=== PATIENT | female | born 1960 | race Caucasian/White ===

== ENCOUNTER 2017-04-07 17:45 | Emergency (ER) | payer BC, OTHER ==
[2017-04-07] MEDS ORDERED: SODIUM CHLORIDE 0.9% 500 ML IV STA (18:09)
--- NOTE | 2017-04-07 18:14 | ED ---
General Adult HPI - General Chief complaint: Chest Pain Stated complaint: CHEST PAIN Time Seen by Provider: 04/07/17 17:50 Source: patient, RN notes reviewed Mode of arrival: wheelchair Limitations: no limitations - History of Present Illness Initial comments: This is a 56-year-old female presents emergency Department complaining of sharp chest pain last 2-3 seconds in his been ongoing intermittently approximate once a day for a month. Patient also states after she gets the sharp chest pains she feels very tired. Patient states it does hurt to touch her chest as well which is similar to the pain she feels when it comes on. Patient states it does appear to occur when she lifts heavy objects at work as well. Patient also states that yesterday with deep breathing it occurred. Patient denies any palpitations. Patient denies any shortness of breath or difficulty breathing. Patient denies any abdominal pain patient denies nausea vomiting diarrhea. Patient denies any recent fever chills or cough. Patient denies being lightheaded or dizzy. Patient denies any headache patient denies numbness weakness - Related Data Home Medications Medication Instructions Recorded Confirmed Ibuprofen/Diphenhydramine Cit 1 tab PO HS PRN 11/28/14 04/07/17 [Motrin Pm Caplet] Multivitamins, Thera [Theragran] 1 tab PO DAILY 11/28/14 04/07/17 Ady/D3/Mag11/Zinc/Feller Hand/Barry/Bor 1 tab PO DAILY 04/07/17 04/07/17 [Caltrate 600+D Plus Tablet] Clarithromycin [Biaxin] 500 mg PO DAILY 04/07/17 04/07/17 Levothyroxine Sodium [Synthroid] 88 mcg PO DAILY 04/07/17 04/07/17 [place]-3 Fatty Acids/Fish Oil [Fish 1 cap PO DAILY 04/07/17 04/07/17 Oil 1,000 mg Softgel] Allergies Allergy/AdvReac Type Severity Reaction Status Date / Time acetaminophen AdvReac Nausea Verified 04/07/17 18:59 [From Tylenol-Codeine #3] codeine phosphate AdvReac Nausea Verified 04/07/17 18:59 [From Tylenol-Codeine #3] Review of Systems ROS Statement: Those systems with pertinent positive or pertinent negative responses have been documented in the HPI. ROS Other: All systems not noted in ROS Statement are negative. Past Medical History Past Medical History: Osteoarthritis (OA), Thyroid Disorder History of Any Multi-Drug Resistant Organisms: None Reported Past Surgical History: Orthopedic Surgery, Tubal Ligation Additional Past Surgical History / Comment(s): CARPAL TUNNEL PAUL , LEFT KNEE ARTHROSCOPY. Past Anesthesia/Blood Transfusion Reactions: No Reported Reaction Past Psychological History: No Psychological Hx Reported Smoking Status: Former smoker Past Alcohol Use History: Rare Past Drug Use History: None Reported - Past Family History Mother Family Medical History: Cancer Additional Family Medical History / Comment(s): BREAST CANCER General Exam - General Exam Comments Initial Comments: GENERAL: Patient is well-developed and well-nourished. Patient is nontoxic and well- hydrated and is in mild distress. ENT: Neck is soft and supple. No significant lymphadenopathy is noted. Oropharynx is clear. Moist mucous membranes. Neck has full range of motion without eliciting any pain. EYES: The sclera were anicteric and conjunctiva were pink and moist. Extraocular movements were intact and pupils were equal round and reactive to light. Eyelids were unremarkable. PULMONARY: Unlabored respirations. Good breath sounds bilaterally. No audible rales rhonchi or wheezing was noted. CARDIOVASCULAR: There is a regular rate and rhythm without any murmurs gallops or rubs. Patient has reproducible chest pain. ABDOMEN: Soft and nontender with normal bowel sounds. No palpable organomegaly was noted. There is no palpable pulsatile mass. SKIN: Skin is clear with no lesions or rashes and otherwise unremarkable. NEUROLOGIC: Patient is alert and oriented x3. Cranial nerves II through XII are grossly intact. Motor and sensory are also intact. Normal speech, volume and content. Symmetrical smile. MUSCULOSKELETAL: Normal extremities with adequate strength and full range of motion. No lower extremity swelling or edema. No calf tenderness. LYMPHATICS: No significant lymphadenopathy is noted PSYCHIATRIC: Normal psychiatric evaluation. Limitations: no limitations Course Vital Signs 04/07/17 04/07/17 17:47 18:01 Temperature 98.9 F 97.8 F Pulse Rate 75 80 Respiratory 17 20 Rate Blood Pressure 117/68 102/64 O2 Sat by Pulse 98 98 Oximetry Medical Decision Making - Medical Decision Making EKG shows normal sinus rhythm at 60 bpm OR interval is 172 QRS is 72 QT interval 370 QTC is 401. Patient's EKG shows no ST segment elevation or depression or T-wave abnormality she noted - Lab Data Result diagrams: 04/07/17 18:20 04/07/17 18:20 Lab Results 04/07/17 04/07/17 04/07/17 Range/Units 18:20 18:20 18:20 WBC 5.6 (3.8-10.6) k/uL RBC 4.48 (3.80-5.40) m/uL Hgb 13.1 (11.4-16.0) gm/dL Hct 39.7 (34.0-46.0) % MCV 88.7 (80.0-100.0) fL MCH 29.3 (25.0-35.0) pg MCHC 33.0 (31.0-37.0) g/dL RDW 14.1 (11.5-15.5) % Plt Count 303 (150-450) k/uL Neutrophils % 50 % Lymphocytes % 31 % Monocytes % 9 % Eosinophils % 4 % Basophils % 1 % Neutrophils # 2.8 (1.3-7.7) k/uL Lymphocytes # 1.8 (1.0-4.8) k/uL Monocytes # 0.5 (0-1.0) k/uL Eosinophils # 0.3 (0-0.7) k/uL Basophils # 0.1 (0-0.2) k/uL PT (9.0-12.0) sec INR (<1.2) APTT (22.0-30.0) sec D-Dimer (<0.60) mg/L FEU Sodium 141 (137-145) mmol/L Potassium 4.1 (3.5-5.1) mmol/L Chloride 108 H (98-107) mmol/L Carbon Dioxide 24 (22-30) mmol/L Anion Gap 9 mmol/L BUN 18 H (7-17) mg/dL Creatinine 0.70 (0.52-1.04) mg/dL Est GFR (MDRD) Af Amer >60 (>60 ml/min/1.73 sqM) Est GFR (MDRD) Non-Af >60 (>60 ml/min/1.73 sqM) Glucose 90 (74-99) mg/dL Calcium 9.2 (8.4-10.2) mg/dL Magnesium 1.9 (1.6-2.3) mg/dL Total Bilirubin 0.3 (0.2-1.3) mg/dL AST 25 (14-36) U/L ALT 33 (9-52) U/L Alkaline Phosphatase 144 H (38-126) U/L Total Creatine Kinase 155 H (30-135) U/L CK-MB (CK-2) 1.6 (0.0-2.4) ng/mL CK-MB (CK-2) Rel Index 1.0 Troponin I <0.012 (0.000-0.034) ng/mL Total Protein 6.3 (6.3-8.2) g/dL Albumin 3.9 (3.5-5.0) g/dL TSH 2.870 (0.465-4.680) mIU/L Free T4 1.32 (0.78-2.19) ng/dL 04/07/17 Range/Units 18:20 WBC (3.8-10.6) k/uL RBC (3.80-5.40) m/uL Hgb (11.4-16.0) gm/dL Hct (34.0-46.0) % MCV (80.0-100.0) fL MCH (25.0-35.0) pg MCHC (31.0-37.0) g/dL RDW (11.5-15.5) % Plt Count (150-450) k/uL Neutrophils % % Lymphocytes % % Monocytes % % Eosinophils % % Basophils % % Neutrophils # (1.3-7.7) k/uL Lymphocytes # (1.0-4.8) k/uL Monocytes # (0-1.0) k/uL Eosinophils # (0-0.7) k/uL Basophils # (0-0.2) k/uL PT 10.0 (9.0-12.0) sec INR 1.0 (<1.2) APTT 24.9 (22.0-30.0) sec D-Dimer <0.17 (<0.60) mg/L FEU Sodium (137-145) mmol/L Potassium (3.5-5.1) mmol/L Chloride (98-107) mmol/L Carbon Dioxide (22-30) mmol/L Anion Gap mmol/L BUN (7-17) mg/dL Creatinine (0.52-1.04) mg/dL Est GFR (MDRD) Af Amer (>60 ml/min/1.73 sqM) Est GFR (MDRD) Non-Af (>60 ml/min/1.73 sqM) Glucose (74-99) mg/dL Calcium (8.4-10.2) mg/dL Magnesium (1.6-2.3) mg/dL Total Bilirubin (0.2-1.3) mg/dL AST (14-36) U/L ALT (9-52) U/L Alkaline Phosphatase (38-126) U/L Total Creatine Kinase (30-135) U/L CK-MB (CK-2) (0.0-2.4) ng/mL CK-MB (CK-2) Rel Index Troponin I (0.000-0.034) ng/mL Total Protein (6.3-8.2) g/dL Albumin (3.5-5.0) g/dL TSH (0.465-4.680) mIU/L Free T4 (0.78-2.19) ng/dL Disposition Clinical Impression: Chest wall pain Disposition: HOME SELF-CARE Condition: Good Instructions: Chest Wall Pain (ED) Referrals: Lia Valente MD [Primary Care Provider] - 1-2 days Time of Disposition: 19:30
[2017-04-07 18:38] LABS: Basophils # (A) 0.1 k/uL (0-0.2); Basophils % (A) 1 %; CH 30.2; CHCM 34.2; Eosinophils # (A) 0.3 k/uL (0-0.7); Eosinophils % (A) 4 %; HCT 39.7 % (34.0-46.0); HDW 2.48; HGB 13.1 gm/dL (11.4-16.0); Luc # (Auto) 0.24; Luc % (Auto) 4; Lymphocytes # (A) 1.8 k/uL (1.0-4.8); Lymphocytes % (A) 31 %; MCH 29.3 pg (25.0-35.0); MCV 88.7 fL (80.0-100.0); Mean Platelet Volume 7.2; Monocytes # (A) 0.5 k/uL (0-1.0); Monocytes % (A) 9 %; Neutrophils # (A) 2.8 k/uL (1.3-7.7); Neutrophils % (A) 50 %; RBC 4.48 m/uL (3.80-5.40); RDW 14.1 % (11.5-15.5); WBC 5.6 k/uL (3.8-10.6)
[2017-04-07 18:53] LABS: ALT 33 U/L (9-52); AST 25 U/L (14-36); Alkaline Phosphatase 144 U/L (38-126); Anion Gap 9 mmol/L; Blood Urea Nitrogen 18 mg/dL (7-17); Calcium 9.2 mg/dL (8.4-10.2); Carbon Dioxide 24 mmol/L (22-30); Chloride 108 mmol/L (98-107); Glucose 90 mg/dL (74-99); Magnesium 1.9 mg/dL (1.6-2.3); Non-African American GFR(MDRD) >60 (>60 ml/min/1.73 sqM); Partial Thromboplastin Time 24.9 sec (22.0-30.0); Potassium 4.1 mmol/L (3.5-5.1); Sodium 141 mmol/L (137-145); Total Bilirubin 0.3 mg/dL (0.2-1.3); Total Protein 6.3 g/dL (6.3-8.2)
[2017-04-07 18:58] LABS: Creatine Kinase 155 U/L (30-135)
[2017-04-07 19:11] LABS: Creatine Kinase MB 1.6 ng/mL (0.0-2.4); Troponin I <0.012 ng/mL (0.000-0.034)
--- NOTE | 2017-04-07 19:11 | XR ---
EXAMINATION TYPE: XR chest 2V DATE OF EXAM: 04/07/2017 COMPARISON: NONE HISTORY: Cough and congestion with pain TECHNIQUE: Frontal and lateral views of the chest are obtained. FINDINGS: There is no focal air space opacity, pleural effusion, or pneumothorax seen. The cardiac silhouette size is within normal limits. The osseous structures are intact. IMPRESSION: No acute cardiopulmonary process.
[2017-04-07 20:02] VITALS: BP 107/59; PULSE 66; RESP 18; TEMP 98.1
== END 2017-04-07 20:05 | disposition home or self-care (01) ==
LOC: EC 17:45
DX: R07.89 Other chest pain (principal); E07.9 Disorder of thyroid, unspecified; Z87.891 Personal history of nicotine dependence; Z88.5 Allergy status to narcotic agent; Z88.6 Allergy status to analgesic agent; Z79.899 Other long term (current) drug therapy
CPT/HCPCS: 36415; 71020; 80053; 82550; 82553; 83735; 84439; 84443; 84484; 85025; 85379; 85610; 85730; 93005; 96360; 99285

== ENCOUNTER → 2022-07-21 | Outpatient (CLI) | payer OTHER ==
[~2022-07-21] MED LIST: REGADENOSON 0.4 MG/5 ML SYRINGE IV PRN
--- NOTE | 2022-07-21 11:37 | NM ---
EXAMINATION TYPE: NM stress lexiscan cardiolite DATE OF EXAM: 07/21/2022 COMPARISON: NONE HISTORY: Chest pain TECHNIQUE: After the intravenous administration of 9.5 mCi Tc 99m Sestamibi - Cardiolite resting SPE CT images acquired 45 minutes post injection. The patient received 0.4mg Lexiscan, 25.5 mCi Tc 99m Sestamibi - Stress images obtained [address] injection FINDINGS: Review of stress and rest SPECT images demonstrates no distinct perfusion abnormality. Gated analysi s shows normal wall motion with an estimated left ventricular ejection fraction of 67 %. IMPRESSION: No scintigraphic evidence for reversible ischemia.
--- NOTE | 2022-07-21 13:09 | CA ---
Lexiscan Nuclear Stress Test Report Name: Lilian Mijares Exam Date: 07/21/2022 10:26 Exam Location: [place] Stress Ht (in): 62 Wt (lb): 165 BSA: 1.76 Ordering Phys: Lia Valente MD Referring Phys: Lia Valente MD Technologist: Giovanny Mcclendon Age: 61 Gender: F : 1960 Procedure CPT: Indications: R94.31 abn ekg ICD-10 Codes: Patient History: Medications: Meds past 24 hrs: Pretest Chest Pain: STRESS TEST Lexiscan Protocol Exercise Duration (min:sec): 02:[address] Depressions (mm): Angina Score: Soares Score: Resting HR (bpm): 63 Peak HR (bpm): 118 Resting BP (mmHg): 96 / 64 Peak BP (mmHg): 61 / 38 MPHR: 158 Target HR: 134 % MPHR: 75 METS: 1.0 Total Dose: Peak Dose: Atropine: Double Product: 7198 BP Response: Stress Termination: PROTOCOL COMPLETED Stress Symptoms: HEADACHE 100.0 mg AMINOPHYLINE GIVEN Stress Summary: ECG ANALYSIS Resting ECG: Stress ECG: CONCLUSIONS At baseline EKG showed normal sinus rhythm, normal axis, T-wave inversion lead 3 which is normal variant with no significant ST or T wave abnormalities. Patient recieved IV infusion of Lexiscan 0.4mg and at peak infusion EKG showed no significant change from baseline. Conclusions: 1. Normal EKG response to Lexiscan infusion 2. Nuclear imaging to be reported separately. Dr. Az Carl DO (Electronically Signed) Final Date: 21 July 2022 13:08
== END | disposition home or self-care (01) ==
LOC: RADNMMAIN 08:43
PROVIDERS: ATTEND Family Medicine
DX: R94.31 Abnormal electrocardiogram [ECG] [EKG] (principal)
CPT/HCPCS: 93017; 78452; A9500; J2785

== ENCOUNTER 2022-07-27 08:15 | Day surgery (SDC) | payer OTHER ==
[2022-07-20 10:04] VITALS: BMI 29.2
--- NOTE | 2022-07-26 08:31 | P.HPOR ---
History of Present Illness H&P Date: 07/26/22 Chief Complaint: Right knee pain The patient is a 61-year-old female who presents with progressive right knee pain for the past several years worsening recently. She notes swelling, stiffness along with giving way and locking. She is using a cane. She tried medications along with previous injections without much relief. She had a previous knee arthroscopy. Review of Systems As per HPI Past Medical History Past Medical History: Osteoarthritis (OA), Thyroid Disorder Additional Past Medical History / Comment(s): CYST ON KIDNEY, NODULES ON LUNGS, DIVERTICULOSIS History of Any Multi-Drug Resistant Organisms: None Reported Past Surgical History: Orthopedic Surgery, Tubal Ligation Additional Past Surgical History / Comment(s): CARPAL TUNNEL PAUL , BILAT KNEE ARTHROSCOPY., COLONOSCOPY Past Anesthesia/Blood Transfusion Reactions: No Reported Reaction Smoking Status: Former smoker - Past Family History Mother Family Medical History: Cancer Additional Family Medical History / Comment(s): BREAST CANCER Medications and Allergies Home Medications Medication Instructions Recorded Confirmed Type Ibuprofen/Diphenhydramine Cit 1 tab PO HS PRN 11/28/14 07/20/22 History [Motrin Pm Caplet] Multivitamins, Thera [Theragran] 1 tab PO DAILY 11/28/14 07/20/22 History Ady/D3/Mag11/Zinc/Sustainable Design Coordinator/Barry/Bor 1 tab PO DAILY 04/07/17 07/20/22 History [Caltrate 600+D Plus Tablet] [place]-3 Fatty Acids/Fish Oil [Fish 1 cap PO DAILY 04/07/17 07/20/22 History Oil 1,000 mg Softgel] Levothyroxine Sodium [Levoxyl] 112 mcg PO MOTUWETHFRSA 07/20/22 07/20/22 History Levothyroxine Sodium [Levoxyl] 224 mcg PO HECTOR 07/20/22 07/20/22 History Allergies Allergy/AdvReac Type Severity Reaction Status Date / Time acetaminophen AdvReac Nausea Verified 07/20/22 09:48 [From Tylenol-Codeine #3] codeine phosphate AdvReac Nausea Verified 07/20/22 09:48 [From Tylenol-Codeine #3] Physical Examination - Knee right Appearance: ecchymosis Effusion grade: grade 2 Valgus alignment in stance: 5 degrees Tenderness with palpation: lateral Pain: with flexion Gait: limping ROM: extension: -15 degrees ROM: flexion: 110 degrees Strength: extension: 5/5 Strength: flexion: 5/5 Patella exam: Q angle 10 degrees Meniscal tests: lateral joint line pain: positive Results The patient is a well-developed well-nourished female proximal 5 foot 2, 160 pounds of endomorphic habitus. HEENT exam is nonfocal, neck is supple. She has painless passive motion of the right hip. Straight leg raise is negative. Her distal neurovascular appears intact in the right lower extremity. - Diagnostic results Knee x-ray: image reviewed (3 views of the right knee obtained in the office show severe lateral compartment narrowing with [id number] changes and subchondral sclerosis.) Assessment and Plan Assessment: Right knee severe lateral compartment osteoarthrosis Plan: I talked to the patient length regarding her condition along with treatment options. At this point she is quite limited because of pain related to her osteoarthrosis despite extensive previous conservative measures. After thorough discussion she has to pursue surgery. We'll plan to proceed with right total knee arthroplasty. Risks and benefits were discussed at length in layman's terms. We will institute DVT prophylaxis postoperatively. Time with Patient: Less than 30
[~2022-07-27 08:15] MED LIST changes: +ACETAMINOPHEN TAB 500 MG TAB PO PRN; +DEXAMETHASONE SOD PHOSPHATE 4 MG/ML 1 ML VIAL IV ONE; +HYDROmorphone 0.5 MG/0.5 ML SYRINGE IVP PRN; +MELOXICAM 7.5 MG TAB PO PRN; +ONDANSETRON 4 MG/2 ML VIAL IVP ONE; -REGADENOSON 0.4 MG/5 ML SYRINGE IV PRN; +TRANEXAMIC ACID IN NACL,ISO-OS 1,000 MG in SALINE 1 100ML.BAG IVPB PRN
[2022-07-27] MEDS: LACTATED RINGERS 1,000 ML IV SCH (08:31)
[2022-07-27] MEDS ORDERED: MIDAZOLAM 2 MG/2 ML VIAL IVP ONE (09:14)
[2022-07-27] MEDS ORDERED: fentaNYL (PF) 50 MCG/1 ML VIAL IVP ONE (09:20)
--- NOTE | 2022-07-27 09:38 | P.ANPRN ---
Procedure Note - Anesthesia - Nerve Block Performed Right Adductor Canal Infusion Time Out Performed: Yes (0913) Date of Procedure: 07/27/22 Procedure Start Time: 09:14 Procedure Stop Time: :20 Location of Patient: PreOp Indication: Acute Post-Operative Pain, Requested by Surgeon Specifically requested for management of pain by DrEric: Yannick Alves (\) Sedation Type: Sedate with meaningful contact maintained Preparation: Sterile Prep, Sterile Dressing Position: Supine Catheter Depth at Skin (cm): 6 Catheter: Indwelling Needle Types: Pajunk Needle Gauge: 18 Ultrasound used to visualize needle placement: Yes Ultrasound used to observe medication spread: Yes Injectate: 0.5% Ropivacaine (see comment for volume) (15cc + 5cc nacl pf) Blood Aspirated: No Pain Paresthesia on Injection Noted: No Resistance on Injection: Normal Image Stored and Saved: Yes Events: Uneventful and Well Tolerated
--- NOTE | 2022-07-27 09:39 | P.ANPRN ---
Procedure Note - Anesthesia - Nerve Block Performed Right iPack Single Time Out Performed: Yes (0913.) Date of Procedure: 07/27/22 Procedure Start Time: Procedure Stop Time: Location of Patient: PreOp Indication: Acute Post-Operative Pain, Requested by Surgeon Specifically requested for management of pain by : Yannick Alves (\) Sedation Type: Sedate with meaningful contact maintained Preparation: Sterile Prep Position: Supine Catheter: None Needle Types: Pajunk Needle Gauge: 21 Ultrasound used to visualize needle placement: Yes Ultrasound used to observe medication spread: Yes Injectate: 0.5% Ropivacaine (see comment for volume) (15cc + 5cc nacl pf) Blood Aspirated: No Pain Paresthesia on Injection Noted: No Resistance on Injection: Normal Image Stored and Saved: Yes Events: Uneventful and Well Tolerated
[2022-07-27] MEDS ORDERED: PROPOFOL 10 MG/ML 20 ML VIAL IV ONE (10:15)
[2022-07-27] MEDS ORDERED: PHENYLEPHRINE-0.9% NACL SYG 1,000 MCG/10 ML SYRINGE ONE (10:15)
[2022-07-27] MEDS ORDERED: MIDAZOLAM 2 MG/2 ML VIAL ONE (10:15)
[2022-07-27] MEDS ORDERED: TRANEXAMIC ACID IN NACL,ISO-OS 1,000 MG/100 ML BAG ONE (10:15)
[2022-07-27] MEDS ORDERED: fentaNYL (PF) 50 MCG/ML 2 ML AMP ONE (10:15)
[2022-07-27] MEDS ORDERED: ROPIVACAINE 5 MG/ML 30 ML VIAL ONE (10:15)
[2022-07-27] MEDS ORDERED: SODIUM CHLORIDE 0.9% (PF) 10 ML VIAL ONE (10:15)
[2022-07-27] MEDS ORDERED: ceFAZolin 1,000 MG in SODIUM CHLORIDE 0.9% 1,000 ML IRRIGATION ONE ×4 (11:04)
[2022-07-27] MEDS ORDERED: LACTATED RINGERS 1,000 ML IV ONE (11:42)
[2022-07-27] MEDS ORDERED: HYDROcodone/APAP 5-325MG 1 EACH TAB PO PRN (11:55)
[2022-07-27] MEDS ORDERED: NALOXONE 0.4 MG/ML 1 ML VIAL IV PRN (11:55)
[2022-07-27] MEDS ORDERED: HYDROmorphone 0.5 MG/0.5 ML SYRINGE IVP PRN (11:55)
[2022-07-27] MEDS ORDERED: HYDROmorphone 1 MG/ML 1 ML SYRINGE IVP PRN (11:55)
--- NOTE | 2022-07-27 12:21 | P.OP ---
Date of Procedure: 07/27/22 Preoperative Diagnosis: Right knee severe tricompartmental osteoarthrosis Postoperative Diagnosis: Same Procedure(s) Performed: Right total knee arthroplastycementedcruciate retaining Implants: Depuy Attune size 4 narrow cemented femoral component, size 3 cemented tibial component, 12 mm articular surface, 35 mm cemented patellar component. This is a cruciate retaining implant. Anesthesia: regional, spinal Surgeon: Yannick Alves Gear Coding Machine Operator #1: Calvin Franco Estimated Blood Loss (ml): 50 Pathology: other (Bone fragments) Condition: stable Disposition: PACU Indications for Procedure: The patient's a 61-year-old female who presents with progressive right knee pain secondary to osteoporosis despite conservative measures. A discussion of the risks and benefits of operative intervention versus continued conservative measures was made with patient. She opted to proceed with surgery. Operative risks to include infection, neurovascular injury, development of blood clots, possible component loosening/failure and need for subsequent procedures was discussed. Informed consent was obtained. Operative Findings: As below Description of Procedure: The patient was brought to the operating room, and after induction of spinal anesthesia the right lower extremity was prepped and draped in a normal fashion. The tourniquet was inflated to 270 mmHg. A longitudinal incision extending 3 finger breaths above the superior pole of the patella extending to the medial aspect the tibial tubercle was then made. The skin and subcutaneous tissues were divided sharply. Electrocautery was used for hemostasis. A medial parapatellar arthrotomy was then performed. The medial soft tissues to include the superficial and deep portions of the medial collateral ligament as well as the medial hamstring tendons were elevated subperiosteally. The lateral ligamentous complex including the popliteus and lateral collateral ligament were elevated subperiosteally off the lateral femoral epicondyle to aid in soft tissue balancing. The patella was everted. The knee was flexed. A portion of the retropatellar fat pad was excised sharply. The anterior cruciate ligament was sacrificed. A starting hole was made in the distal femur 1 cm anterior to the posterior cruciate origin. An intramedullary femoral guide was gently inserted planning on 5 valgus distal cut with 9 mm distal resection. The cutting block was pinned in place. The distal cut was then made. The posterior referencing sizing guide was utilized. 3 of external rotation was built into the system and verified off the trans-epicondylar axis and the posterior condyles. I felt size 4 narrow was most appropriate. The cutting block was pinned in place. The anterior, posterior, and chamfer cuts were then made. The bone fragments were removed. A sulcus cut was then made with the appropriate guide. The trial size 4 narrow femoral component was then placed and was fully seated. There was good anterior to posterior and medial to lateral fit. The distal peg holes were then drilled. The trial component was then removed. Attention was then paid towards preparing the proximal tibia. An extra medullary guide was utilized in line with the tibial shaft and second metatarsal distally. A 7 posterior slope was planned. I planned on 2 mm resection from the medial compartment. The cutting block was pinned in place. The proximal tibial cut was then made. The bone was removed in one fragment. The remnants of the medial and lateral menisci were excised the capsule junction with electro cautery. The tibia sized most appropriately at size 3. The posterior osteophytes off the distal femur were carefully removed with a curved osteotome. The trial tibial and femoral components were placed along with a 12 millimeters articular surface. I was able to obtain full flexion and extension with good stability with varus and valgus stress. After several flexion and extension cycles, the tibial rotation was marked with electrocautery in line with the medial one third of the tibial tubercle. Attention was then paid towards preparing the patella. A patella reamer was utilized taking this down to 14 mm of bone stock. A good flush cut was made. The patella sized most appropriately at 35 millimeters. The peg holes were then drilled. The trial component was placed. The knee was taken through a range of motion. I had good patellofemoral tracking with no hands technique. The trial components were then removed. The tibia was prepared in the appropriate rotation with appropriate drill and keel punch. The flexion and extension gaps were checked and felt to be symmetric. The posterior soft tissues were injected with ropivacaine. The bony surfaces were prepared with pulsatile lavage and dried. The deep tibial component was then cemented in place and was fully seated. Excess cement was removed. The femoral component was cemented in place and was fully seated. Again excess cement was removed. The trial 12 millimeters surface was then inserted in the knee was put in full extension. The patella component was cemented in place. After the cement had sufficiently hardened, the knee was again taken through a range of motion. Again there was good stability in flexion and extension with varus and valgus stress. The trial articular surface was then removed. The final articular surface was placed and was impacted. Care was taken to avoid any soft tissue interposition. Pulsatile lavage was again utilized. The tourniquet was deflated with approximately 60 minutes total tourniquet time. There was minimal drainage therefore a deep drain was not placed. The medial parapatellar arthrotomy was then closed with #2 Ethibond suture. The subcutaneous tissues were reapproximated interrupted 2-0 Vicryl sutures. The skin was reapproximated with 3-0 subarticular strata fix suture. Skin tape and adhesive was applied. A sterile dressing was applied. The pat ient was then awoken from sedation and transferred to recovery room in good condition. Blood loss was estimated at 50 milliliters. No complications were incurred. Sponge and needle counts were correct at the end the case. Calvin FRY assisted during the major components this case to include exposure, bone resection, and implantation.
[2022-07-27] MEDS ORDERED: ROPIVACAINE 1,100 MG, SODIUM CHLORIDE 0.9% 500 ML 330 ML, EMPTY PAIN BALL 1 EACH MISCELLANE PRN ×2 (12:51)
--- NOTE | 2022-07-27 13:20 | XR ---
EXAMINATION TYPE: XR knee limited RT DATE OF EXAM: 07/27/2022 CLINICAL HISTORY: Right knee pain and arthritis status post total knee replacement. TECHNIQUE: Portable AP and crosstable lateral views of the right knee are obtained immediately posto peratively. COMPARISON: None FINDINGS: Metallic hardware from total right knee arthroplasty is seen and appears satisfactory in a lignment and position. There is evidence of recent surgery with diffuse subcutaneous gas and soft ti ssue swelling noted. IMPRESSION: METALLIC HARDWARE FROM TOTAL RIGHT KNEE ARTHROPLASTY IS SATISFACTORY IN ALIGNMENT.
[2022-07-27] MEDS: HYDROcodone/APAP 7.5-325MG 1 EACH TAB PO PRN ×2 (16:19→22:49)
--- NOTE | 2022-07-27 18:17 | P.CONS ---
History of Present Illness - Reason for Consult Consult date: 07/27/22 - History of Present Illness Patient is a 61-year-old female with PMH of hypothyroidism and osteoarthritis that presents to [facility] for elective surgery. She underwent right total knee arthroplasty on 07/27/2022. She is admitted overnight for observation. [facility] is being consulted for medical management of this patient. Patient reports well controlled pain in her right knee. Urinating freely. No bowel movement yet. Patient denies headache, lower extremity edema, nausea or vomiting, fever or chills, cough, chest pain, shortness breath, palpitations, changes in urination or bowel habits. No changes in appetite or weight. She denies any dizziness, numbness/weakness/tingling of the extremities. Pertinent positives and negatives as discussed in HPI, a complete review of systems was performed and all other systems are negative. General: non toxic, no distress, appears at stated age Derm: warm, dry Head: atraumatic, normocephalic, symmetric Eyes: EOMI, no lid lag, anicteric sclera Mouth: no lip lesion, mucus membranes moist Cardiovascular: S1S2 reg, no murmur, positive posterior tibial pulse bilateral, Lungs: CTA bilateral, no rhonchi, no rales , no accessory muscle use Ext: no gross muscle atrophy, no edema, no contractures Neuro: no focal neuro deficits Psych: Alert, oriented, appropriate affect #Hypothyroidism Restart Synthroid. #Overweight Patient would benefit from a structured weight loss program. #Status post right total knee arthroplasty Management as per orthopedic surgery. PT and OT consulted. DVT prophylaxis: SCDs Discussed with: Patient Anticipated discharge: 1-[address]: Home A total of 20 minutes was spent on the care of this complex patient more than 50% of the time was spent in counseling and care coordination. Past Medical History Past Medical History: Osteoarthritis (OA), Thyroid Disorder Additional Past Medical History / Comment(s): CYST ON KIDNEY, NODULES ON LUNGS, DIVERTICULOSIS History of Any Multi-Drug Resistant Organisms: None Reported Past Surgical History: Orthopedic Surgery, Tubal Ligation Additional Past Surgical History / Comment(s): CARPAL TUNNEL PAUL , BILAT KNEE ARTHROSCOPY., COLONOSCOPY Past Anesthesia/Blood Transfusion Reactions: No Reported Reaction Smoking Status: Former smoker - Past Family History Mother Family Medical History: Cancer Additional Family Medical History / Comment(s): BREAST CANCER Medications and Allergies Home Medications Medication Instructions Recorded Confirmed Type Ibuprofen/Diphenhydramine Cit 1 tab PO HS PRN 11/28/14 07/27/22 History [Motrin Pm Caplet] Multivitamins, Thera [Theragran] 1 tab PO DAILY 11/28/14 07/27/22 History Ady/D3/Mag11/Zinc/Merchandise Planner/Barry/Bor 1 tab PO DAILY 04/07/17 07/27/22 History [Caltrate 600+D Plus Tablet] [place]-3 Fatty Acids/Fish Oil [Fish 1 cap PO DAILY 04/07/17 07/27/22 History Oil 1,000 mg Softgel] Levothyroxine Sodium [Levoxyl] 112 mcg PO MOTUWETHFRSA 07/20/22 07/27/22 History Levothyroxine Sodium [Levoxyl] 224 mcg PO HECTOR 07/20/22 07/27/22 History Allergies Allergy/AdvReac Type Severity Reaction Status Date / Time acetaminophen AdvReac Nausea Verified 07/27/22 09:07 [From Tylenol-Codeine #3] codeine phosphate AdvReac Nausea Verified 07/27/22 09:07 [From Tylenol-Codeine #3] Physical Exam Vitals: Vital Signs Temp Pulse Pulse Resp BP BP BP 07/27/22 15:14 97.8 F 56 L 18 106/68 07/27/22 14:30 58 L 16 100/60 07/27/22 14:00 59 L 16 96/64 07/27/22 13:30 54 L 16 94/64 07/27/22 13:03 60 16 99/60 07/27/22 12:48 59 L 18 104/63 07/27/22 12:33 52 L 18 120/64 07/27/22 12:18 97.4 F L 68 18 100/60 07/27/22 09:43 73 16 104/70 07/27/22 08:47 97.8 F 67 16 113/70 Pulse Ox 07/27/22 15:14 97 07/27/22 14:30 98 07/27/22 14:00 98 07/27/22 13:30 100 07/27/22 13:03 97 07/27/22 12:48 99 07/27/22 12:33 95 07/27/22 12:18 95 07/27/22 09:43 99 07/27/22 08:47 98 Intake and Output 07/27/22 07/27/22 07/27/22 06:59 14:59 22:59 Intake Total 1351 Output Total 50 Balance 1301 Intake: IV 1351 Output: Estimated Blood Loss 50 Other: Weight 71.4 kg 71.4 kg
[2022-07-27] MEDS ORDERED: SENNOSIDES-DOCUSATE SODIUM 1 EACH TAB PO SCH (21:00)
[2022-07-28] MEDS ORDERED: MELATONIN 3 MG TABLET PO SCH (01:39)
[2022-07-28] MEDS: HYDROcodone/APAP 7.5-325MG 1 EACH TAB PO PRN ×2 (05:21→11:42)
[2022-07-28] MEDS ORDERED: LEVOTHYROXINE 112 MCG TAB PO SCH (06:30)
[2022-07-28 07:51] VITALS: BP 82/51; PULSE 87; RESP 13; TEMP 98.4
[2022-07-28] MEDS ORDERED: RIVAROXABAN 10 MG TAB PO SCH (09:00)
[2022-07-28 10:31] LABS: Basophils # (A) 0.05 X 10*3/uL (0.00-0.10); Basophils % (A) 0.7 %; Eosinophils # (A) 0.07 X 10*3/uL (0.04-0.35); HCT 34.4 % (37.2-46.3); HGB 10.8 g/dL (12.0-15.0); Immature Grans, Automated 0.3 %; Lymphocytes # (A) 2.03 X 10*3/uL (0.90-5.00); Lymphocytes % (A) 29.9 %; MCHC 31.4 g/dL (32.0-37.0); MCV 89.1 fL (80.0-97.0); Mean Platelet Volume 9.3 fL (9.5-12.2); Monocytes # (A) 0.83 X 10*3/uL (0.20-1.00); Monocytes % (A) 12.2 %; NRBC Per 100 WBC 0 /100 WBCS (0.0-0.0); Neutrophils % (A) 55.9 %; Platelet Count 278 X 10*3/uL (140-440); RBC 3.86 X 10*6/uL (4.10-5.20); RDW 13.3 % (11.5-14.5)
--- NOTE | 2022-07-28 10:33 | P.DS ---
Providers Date of admission: 07/27/2022 Expected date of discharge: 07/28/22 Attending physician: Yannick Alves Consults: 07/27/22 12:02 Consult Physician Routine Consulting Provider: Barbie Tolentino Consult Reason/Comments: Medical Management s/p right total knee arthroplasty Do you want consulting provider notified?: Yes Primary care physician: Lia [facility] Course: Date of admission: 07/27/2022 Date of discharge: 07/28/2022 Admission diagnosis: Right knee osteoarthritis Discharge diagnosis: Same Attending physician: Dr. Alves Surgical procedures: Right total knee arthroplasty Brief history: Patient is a 61-year-old female with a history of progressive primary right knee osteoarthritis. At this point patient has failed conservative treatment measures and has opted to proceed with a elective right total knee arthroplasty. Hospital course: Details of patient's surgery can be found in operative report. Patient tolerated the procedure well and was subsequently transported to orthopedic floor. Patient's orthopeidc and medical care was provided daily. Patient had daily physical therapy to include strengthening range of motion as well as education with walker ambulation. Patient was treated with Xarelto for their postoperative DVT prophylaxis during their inpatient stay. Patient was noted to have a relatively uneventful postoperative course. Patient reported satisfactory pain control with oral pain medications by postoperative day 1. Patient showed satisfactory progress with physical therapy. Patient moved steadily through the program and had no difficulty meeting the goals by postoperative day 1. Given patient's otherwise satisfactory course and having met physical therapy goals, plan is to discharge patient home with health services on postoperative day 1. Discharge condition/disposition: Patient will be discharged home with health services in stable condition. Discharge medications: Instructions are given on resumption of patient's normal daily medications per primary care recommendation, in addition patient will be prescribed Starlight; Colace; Eliquis 2.5 mg BID x 2 weeks. Discharge instructions: 1. Wound care and infection precautions, keep incision dry and covered while showering, no lotions, creams, moisturizers. No soaking, tubs, pools, hottubs. Do not scrub over the incision. 2. Weight-bear as tolerated with walker / cane until follow-up. 3. Ice and elevate when necessary. Do not exceed 20 minutes per hour with ice pack. 4. Utilize compression sleeve until seen at first follow up appointment. 5. Visiting nursing care. 6. Home physical therapy including home CPM. 7. Pain meds and anticoagulants per prescription. 8. Pain medication has potential to cause constipation. Increase oral fluid and fiber intake. Contact primary care provider if you have not had a bowel movement within 48 hours after discharge 9. No anti-inflammatory medication until discussed at first post operative visit, this including Motrin, Aleve, Mobic, Diclofenac. 10. Follow up in office at 2 weeks postop with Sameer Humphrey PA-C / Calvin Franco PA-C 11. Follow up with your primary care doctor 7-10 days after discharge. 12. Contact [facility] with any questions, . Assessment: Right knee osteoarthritis Procedures: Right total knee arthroplasty Patient Condition at Discharge: Good Plan - Discharge Summary Discharge Rx Participant: Yes New Discharge Prescriptions: New HYDROcodone/APAP 7.5-325MG [Starlight 7.5] 1 each PO Q6HR PRN #28 tab PRN Reason: Pain Docusate [Colace] 100 mg PO DAILY #30 capsule Apixaban [Eliquis] 2.5 mg PO BID #60 tab No Action Ibuprofen/Diphenhydramine Cit [Motrin Pm Caplet] 1 tab PO HS PRN PRN Reason: Pain Multivitamins, Thera [Theragran] 1 tab PO DAILY Ady/D3/Mag11/Zinc/Tile Shader/Barry/Bor [Caltrate 600+D Plus Tablet] 1 tab PO DAILY [place]-3 Fatty Acids/Fish Oil [Fish Oil 1,000 mg Softgel] 1 cap PO DAILY Levothyroxine Sodium [Levoxyl] 112 mcg PO MOTUWETHFRSA Levothyroxine Sodium [Levoxyl] 224 mcg PO HECTOR Discharge Medication List Ibuprofen/Diphenhydramine Cit [Motrin Pm Caplet] 1 tab PO HS PRN 11/28/14 [History] Multivitamins, Thera [Theragran] 1 tab PO DAILY 11/28/14 [History] Ady/D3/Mag11/Zinc/Tile Shader/Barry/Bor [Caltrate 600+D Plus Tablet] 1 tab PO DAILY 04/07/17 [History] [place]-3 Fatty Acids/Fish Oil [Fish Oil 1,000 mg Softgel] 1 cap PO DAILY 04/07/17 [History] Levothyroxine Sodium [Levoxyl] 112 mcg PO MOTUWETHFRSA 07/20/22 [History] Levothyroxine Sodium [Levoxyl] 224 mcg PO HECTOR 07/20/22 [History] Apixaban [Eliquis] 2.5 mg PO BID #60 tab 07/28/22 [Rx] Docusate [Colace] 100 mg PO DAILY #30 capsule 07/28/22 [Rx] HYDROcodone/APAP 7.5-325MG [Starlight 7.5] 1 each PO Q6HR PRN #28 tab 07/28/22 [Rx] Follow up Appointment(s)/Referral(s): Calvin Franco PAC [PHYSICIAN TECHNICAL SALES SUPPORT MANAGER] - 08/12/22 10:00 am Lia Valente MD [Primary Care Provider] - 1 Week [facility],Equipment [NON-STAFF] - As Needed (Call [facility] once home to arrange delivery of the Continuous Passive Motion (CPM) machine. ) [facility], [NON-STAFF] - 1-2 Days ([facility] will call you to set up your in home nursing and physical therapy visits. ) Patient Instructions/Handouts: Knee Replacement (DC) Activity/Diet/Wound Care/Special Instructions: Orthopedic Discharge Instructions: 1. Wound care and infection precautions, keep incision dry and covered while showering, no lotions, creams, moisturizers. No soaking, pools, hot tubs. Do not scrub over incision. 2. Weight-bear as tolerated with walker / cane until follow-up. 3. Ice and elevate when necessary. Do not exceed 20 minutes per hour with ice pack. 4. Utilize compression sleeve until seen at first follow up appointment. 5. Pain meds and anticoagulants per prescription. 6. Pain medication has potential to cause constipation. Increase oral fluid and fiber intake. Contact primary care provider if you have not had a bowel movement within 48 hours after discharge. 7. No anti-inflammatory medication until discussed at first post operative visit, this including Motrin, Aleve, Mobic, Diclofenac. 8. Follow up in office at 2 weeks postop with Sameer Humphrey PA-C / Calvin Franco PA-C 9. Follow up with your primary care doctor 7-10 days after discharge. 10. Contact [facility] with any questions, . Keep incision clean, dry, intact. While showering, cover fusion tape with Saran wrap. Keep fusion tape on until follow-up in office in 2 weeks Medications: Starlight 7.5 mg/325 mg; Colace; Eliquis 2.5 mg BID x 2 weeks Discharge Disposition: HOME WITH HOME HEALTH SERVICES
--- NOTE | 2022-07-28 10:46 | P.PN ---
Progress Note - Text Progress Note Date: 07/28/22 Postoperative day # 1 status post total knee arthroplasty, under spinal anesthesia, and adductor canal catheter placed for postoperative analgesia, currently at ropivacaine 0.2% 8 mL per hour and continuous infusion, visual analogue scale is 3/10, patient using oral pain medication for breakthrough pain. Assessment and plan= Acute postoperative pain, adductor canal catheter for pain control, pain is well controlled we'll continue the same management.
--- NOTE | 2022-07-28 11:12 | P.PN ---
Subjective Progress Note Date: 07/28/22 Principal diagnosis: Right knee osteoarthritis Patient was seen at bedside this morning resting comfortably lying semirecumbent in bed. Patient says she has been up several times since surgery yesterday area patient says she has been ambulating using walker for assistance. Patient says she has urinated several times. Patient is looking forward to going home later today. Patient says she is having knee pain currently but it is tolerable with pain medication. Patient does have a walker for home. Patient denies chest pain, fever, shortness breath, nausea, vomiting, change in vision, loss of bowel/bladder control. Objective - Vital Signs Vital signs: Vital Signs Temp 98.4 F 07/28/22 07:50 Pulse 87 07/28/22 07:50 Resp 13 07/28/22 07:50 BP 82/51 07/28/22 07:50 Pulse Ox 96 07/28/22 07:50 FiO2 Intake & Output 07/27/22 07/28/22 07/28/22 18:59 06:59 18:59 Intake Total 1351 Output Total 650 Balance 701 Weight 71.4 kg Intake: IV 1351 Output: Urine 600 Estimated Blood Loss 50 Other: Voiding Method Toilet # Voids 4 1 - Exam Right knee: Incision is clean, dry, and intact. The exofin fusion tape is in good condition. There is minimal soft tissue swelling and ecchymosis surrounding the medial and lateral aspects of the incision. Calf is soft, no tenderness with palpation. Plantar flexion, dorsiflexion, EHL, FHL are intact. Sensory exam to light touch throughout the extremity is intact, dorsal pedis pulses 2+. - Labs CBC & Chem 7: 07/28/22 05:58 Assessment and Plan Assessment: Right knee osteoarthritis Postoperative day 1 status post right total knee arthroplasty Plan: 1. Right knee osteoarthritis - right total knee arthroplasty performed yesterday, 07/27/2022. Patient stable at bedside this morning. Patient does have a walker for home. Discharge home with health services today. 2. Appreciate medical management 3. Pain management - [place] 4. DVT prophylaxis - Xarelto in hospital. Going home with eliquis 2.5 mg BID x 2 weeks 5. GI prophylaxis - senna in hospital. Going home with Colace 6. PT/OT - weightbearing as tolerated with walker 7. Encourage incentive spirometer use 8. Discharge planning - home with health services today. Time with Patient: Less than 30
[2022-07-28] MEDS: LACTATED RINGERS 1,000 ML IV SCH (11:39)
--- NOTE | 2022-07-28 14:24 | P.PN ---
Subjective Progress Note Date: 07/28/22 Patient was seen and examined. No acute events overnight. Has some questions about new medications. She reports well controlled pain in her right knee. Working well with PT. BP 82/51 this morning. She denies any chest pain, SOB or lightheadedness. General: non toxic, no distress, appears at stated age Derm: warm, dry Head: atraumatic, normocephalic, symmetric Eyes: EOMI, no lid lag, anicteric sclera Mouth: no lip lesion, mucus membranes moist Cardiovascular: S1S2 reg, no murmur Lungs: CTA bilateral, no rhonchi, no rales , no accessory muscle use Ext: no gross muscle atrophy, no edema, no contractures Neuro: no focal neuro deficits Psych: Alert, oriented, appropriate affect #Hypothyroidism Restart Synthroid. #Overweight Patient would benefit from a structured weight loss program. #Hypotension No diagnosis of hypertension. Possibly related to [place]. Continue to monitor at home. #Status post right total knee arthroplasty Management as per orthopedic surgery. PT and OT consulted. Patient hypotensive but asymtomatic. States she has a BP monitor at home. She is advised to continue monitoring her BP and watch out for symptoms that would prompt evaluation (chest pain, shortness of breath, lightheadedness). Patient verbalized understanding. She is medically cleared for discharge. Objective - Vital Signs Vital signs: Vital Signs Temp 98.4 F 07/28/22 07:50 Pulse 87 07/28/22 07:50 Resp 13 07/28/22 07:50 BP 82/51 07/28/22 07:50 Pulse Ox 96 07/28/22 07:50 FiO2 Intake & Output 07/27/22 07/28/22 07/28/22 18:59 06:59 18:59 Intake Total 1351 Output Total 650 Balance 701 Weight 71.4 kg Intake: IV 1351 Output: Urine 600 Estimated Blood Loss 50 Other: Voiding Method Toilet # Voids 4 1 - Labs CBC & Chem 7: 07/28/22 05:58 Labs: Abnormal Lab Results - Last 24 Hours (Table) 07/28/22 Range/Units 05:58 RBC 3.86 L (4.10-5.20) X 10*6/uL Hgb 10.8 L (12.0-15.0) g/dL Hct 34.4 L (37.2-46.3) % MCHC 31.4 L (32.0-37.0) g/dL MPV 9.3 L (9.5-12.2) fL
[2022-08-01] MEDS ORDERED: LEVOTHYROXINE 112 MCG TAB PO SCH (06:30)
== END 2022-07-28 13:31 | disposition home health service (06) ==
LOC: OR 08:15 → 4SSUR 12:15 → OR 07-28 13:31
PROVIDERS: ATTEND Orthopaedic Surgery
DX: M17.11 Unilateral primary osteoarthritis, right knee (principal); G89.18 Other acute postprocedural pain; E07.9 Disorder of thyroid, unspecified; Z98.890 Other specified postprocedural states; Z98.51 Tubal ligation status; Z87.891 Personal history of nicotine dependence; Z80.3 Family history of malignant neoplasm of breast; Z79.1 Long term (current) use of non-steroidal anti-inflammatories (NSAID); Z79.899 Other long term (current) drug therapy; Z79.890 Hormone replacement therapy; Z88.5 Allergy status to narcotic agent; Z88.6 Allergy status to analgesic agent
CPT/HCPCS: 64999; 64448; 76942; 73560; 27447; C1713 ×2; C1776; C1751; J2250; J1100; J0690 ×2; J2405; J2795; J3010; 85025; 88300

== ENCOUNTER → 2022-12-13 | Outpatient (CLI) | payer OTHER | END | disposition home or self-care (01) | LOC: LABWHC1 14:04 | PROVIDERS: ATTEND Orthopaedic Surgery | DX: Z01.812 Encounter for preprocedural laboratory examination (principal); M16.11 Unilateral primary osteoarthritis, right hip; Z22.322 Carrier or suspected carrier of Methicillin resistant Staphylococcus aureus | CPT/HCPCS: 87070 ==

== ENCOUNTER → 2023-01-18 | Outpatient (CLI) | payer OTHER | END | disposition home or self-care (01) | LOC: LABPAT 13:59 | PROVIDERS: ATTEND Orthopaedic Surgery | DX: Z01.812 Encounter for preprocedural laboratory examination (principal); M16.11 Unilateral primary osteoarthritis, right hip ==

== ENCOUNTER 2023-01-25 05:36 | Day surgery (SDC) | payer OTHER ==
[2023-01-19 08:12] VITALS: BMI 27.8
--- NOTE | 2023-01-23 11:33 | P.HPOR ---
History of Present Illness H&P Date: 01/23/23 Chief Complaint: Right hip pain The patient is a 62-year-old female who presents with progressive right hip pain for the past several years worsening recently. She has anterior thigh and groin pain worse with weightbearing activities. She has catching symptoms when she walks. She's been limping. She does use a cane. She's tried medications without much relief. Review of Systems Negative except as in HPI Past Medical History Past Medical History: Osteoarthritis (OA), Thyroid Disorder Additional Past Medical History / Comment(s): Cyst on kidney, nodules on lungs, Diverticulosis, gallstones, insomnia. Rheumatoid arthritis History of Any Multi-Drug Resistant Organisms: None Reported Past Surgical History: Orthopedic Surgery, Tubal Ligation Additional Past Surgical History / Comment(s): BILATERAL CARPAL TUNNEL, BILATERAL KNEE ARTHROSCOPY, COLONOSCOPY, TOTAL RIGHT KNEE REPLACEMENT. Past Anesthesia/Blood Transfusion Reactions: No Reported Reaction Past Psychological History: No Psychological Hx Reported Smoking Status: Former smoker Past Alcohol Use History: Rare Additional Past Alcohol Use History / Comment(s): Quit smoking 25+ yrs ago. Past Drug Use History: Marijuana Additional Drug Use History / Comment(s): CBD gummies for sleep occasionally, aware no use 24 hrs prior to procedure. - Past Family History Mother Family Medical History: Cancer Additional Family Medical History / Comment(s): BREAST CANCER. Medications and Allergies Home Medications Medication Instructions Recorded Confirmed Type Ibuprofen/Diphenhydramine Cit 1 tab PO HS PRN 11/28/14 01/18/23 History [Motrin Pm Caplet] Multivitamins, Thera [Theragran] 1 tab PO DAILY 11/28/14 01/18/23 History Ady/D3/Mag11/Zinc/Mailing Machine Operator/Barry/Bor 1 tab PO DAILY 04/07/17 01/18/23 History [Caltrate 600+D Plus Tablet] [place]-3 Fatty Acids/Fish Oil [Fish 1 cap PO DAILY 04/07/17 01/18/23 History Oil 1,000 mg Softgel] Levothyroxine Sodium [Levoxyl] 112 mcg PO MOTUWETHFRSA 07/20/22 01/18/23 History Levothyroxine Sodium [Levoxyl] 224 mcg PO HECTOR 07/20/22 01/18/23 History HYDROcodone/APAP 7.5-325MG [[place] 1 each PO Q6HR PRN #28 tab 07/28/22 01/18/23 Rx 7.5] Vitamin B-12 (Unknown Dose) 1 tab PO DAILY 01/18/23 01/18/23 History Vitamin C (Unknown Dose) 1 tab PO DAILY 01/18/23 01/18/23 History Allergies Allergy/AdvReac Type Severity Reaction Status Date / Time acetaminophen AdvReac Nausea Verified 01/18/23 16:00 [From Tylenol-Codeine #3] codeine phosphate AdvReac Nausea Verified 01/18/23 16:00 [From Tylenol-Codeine #3] Physical Examination - Hip right Gait: antalgic Tenderness with palpation: anterior Pain with motion: internal rotation and hip flexion ROM: flexion: 80 degrees ROM: internal rotation: 10 degrees (With pain) ROM: external rotation: 50 degrees Crepitus with motion: Yes Strength: extension: 5/5 Strength: flexion: 5/5 Strength: abduction: 5/5 Tests: impingement tests: positive Results The patient is a well-developed well-nourished female, approximately 5 foot to 164 pounds of mesomorphic habitus. HEENT exam is nonfocal, neck is supple. She has limited painful range of motion of the right hip. She has 1 cm shortening right lower extremity compared to the left. Her distal neurovascular exam appears intact in the right lower extremity. - Diagnostic results Hip x-ray: image reviewed (2 views of the right hip obtained in the office show severe right hip osteoarthrosis with [id number] changes and subchondral sclerosis.) Assessment and Plan Assessment: Right hip severe osteoarthrosis History of rheumatoid arthritis History of pulmonary disease Plan: I talked to the patient length regarding her condition along with treatment options. At this point she is quite symptomatic and limited because of pain related to her osteoporosis despite previous conservative measures. After thorough discussion she opted to proceed with surgery. We'll plan to proceed with right total hip arthroplasty utilizing an anterior approach. We will institute DVT prophylaxis postoperatively. Risks and benefits were discussed at length in layman's terms. She underwent preoperative medical and pulmonary clearance.
[~2023-01-25 05:36] MED LIST changes: -DEXAMETHASONE SOD PHOSPHATE 4 MG/ML 1 ML VIAL IV ONE; -HYDROmorphone 0.5 MG/0.5 ML SYRINGE IVP PRN; -ONDANSETRON 4 MG/2 ML VIAL IVP ONE
[2023-01-25] MEDS ORDERED: HYDROmorphone 0.5 MG/0.5 ML SYRINGE IVP PRN ×2 (05:45→09:04)
[2023-01-25] MEDS ORDERED: ONDANSETRON 4 MG/2 ML VIAL IVP ONE (05:45)
[2023-01-25] MEDS ORDERED: LACTATED RINGERS 1,000 ML IV SCH (05:45)
[2023-01-25] MEDS ORDERED: DEXAMETHASONE SOD PHOSPHATE 4 MG/ML 1 ML VIAL IV ONE (05:45)
[2023-01-25] MEDS ORDERED: MIDAZOLAM 2 MG/2 ML VIAL IVP ONE (06:57)
[2023-01-25] MEDS ORDERED: PROPOFOL 10 MG/ML 20 ML VIAL IV ONE (07:01)
[2023-01-25] MEDS ORDERED: WATER FOR INJECTION, STERILE 10 ML VIAL IV ONE (07:01)
[2023-01-25] MEDS ORDERED: PHENYLEPHRINE-0.9% NACL SYG 1,000 MCG/10 ML SYRINGE ONE (07:01)
[2023-01-25] MEDS ORDERED: TRANEXAMIC ACID IN NACL,ISO-OS 1,000 MG/100 ML BAG ONE (07:01)
[2023-01-25] MEDS ORDERED: MIDAZOLAM 2 MG/2 ML VIAL ONE (07:01)
[2023-01-25] MEDS ORDERED: fentaNYL (PF) 50 MCG/ML 2 ML AMP ONE (07:01)
[2023-01-25] MEDS ORDERED: ePHEDrine 50 MG/ML 1 ML VIAL ONE (07:01)
[2023-01-25] MEDS ORDERED: ceFAZolin 1,000 MG in SODIUM CHLORIDE 0.9% 1,000 ML IRRIGATION ONE (07:40)
[2023-01-25] MEDS ORDERED: LACTATED RINGERS 1,000 ML IV ONE ×4 (07:50→09:51)
[2023-01-25] MEDS ORDERED: NALOXONE 0.4 MG/ML 1 ML VIAL IV PRN (09:04)
[2023-01-25] MEDS ORDERED: HYDROmorphone 1 MG/ML 1 ML SYRINGE IVP PRN (09:04)
[2023-01-25] MEDS ORDERED: MAGNESIUM HYDROXIDE 2,400 MG/10 ML CUP PO PRN (09:04)
--- NOTE | 2023-01-25 09:17 | P.OP ---
Date of Procedure: 01/25/23 Preoperative Diagnosis: Right hip severe osteoarthrosis Postoperative Diagnosis: Same Procedure(s) Performed: Right total hip arthroplastypress-fitanterior approach Implants: Depuy Corail size 10 standard collared 125 press-fit femoral stem, 36+1.5 ceramic femoral head, 52 mm Auxier acetabular shell with neutral polyethylene liner. Anesthesia: regional, spinal Surgeon: Yannick Alves Company Manager #1: Calvin Franco Estimated Blood Loss (ml): 200 Pathology: none sent Condition: stable Disposition: PACU Indications for Procedure: The patient is a 62-year-old female who presents with progressive right hip pain secondary to osteoarthrosis despite conservative measures. A discussion of the risks and benefits of operative intervention versus continued conservative measures was made with patient. She opted to proceed with surgery. Operative risks to include infection, neurovascular injury, development of blood clots, fracture, ligament discrepancy, possible instability, possible component loosening/failure and possible need for subsequent procedures was discussed. Informed consent was obtained. Operative Findings: As below Description of Procedure: The patient was brought to the operating room, and after induction of spinal anesthesia was placed supine on the Mesha table. Positioning was checked with fluoroscopy. The right hip was then prepped and draped in a normal fashion. A 12 cm incision was then made starting 2 fingerbreadths distal and 3 finger breaths posterior to the ASIS in line with the proximal femur. The skin was incised sharply. Subcutaneous tissues were divided sharply. Electrocautery was used for hemostasis. The fascia was split in line with skin incision. The interval between the sartorius and tensor fascia susie was then bluntly developed. The posterior fascia was opened with electrocautery. The lateral circumflex vessels were identified and cauterized prior to sectioning. A retractor was placed along the superior femoral neck as well as the anterior acetabular rim. A wide capsulotomy was performed. The neck cut was then made at a 45 angle to the shaft approximately 1 1/2 cm above the level of the lesser trochanter. The head was extracted. Attention was then paid towards preparing the acetabular. Anterior and posterior retractors were placed. The remaining capsular labral tissue sharply debrided clearly defining the acetabular margins. I began reaming with a 45 mm reamer taking care to initially medialize then reaming at 45 of abduction and 20 of anteversion. Sequential reaming is performed up to 51 mm. A trial 52 mm acetabular shell was inserted in the same orientation and was fully seated. There was good rim fit and stability. Positioning was checked with fluoroscopy. The final 52 mm acetabular shell was inserted again at 45 of abduction and 20 of anteversion. This was fully seated. There was good rim fit and stability. Again fluoroscopy was used to check the adequacy of placement. A neutral polyethylene liner was gently impacted. Care was taken to avoid any soft tissue interposition. Pulsatile lavage was utilized. Attention was then paid towards preparing the proximal femur. The central region was cleared of soft tissue. A canal finder was used to find the femoral canal. Sequential broaching was performed up to size 10 taking care to lateralize proximally. A calcar mill was used to fashion the medial calcar. There was good rotational stability. A 125 neck along with a 36 mm +1.5 head was placed. The hip was gently reduced. Fluoroscopy was used to check the adequacy of positioning along with leg lengths. I felt both were good. The hip was gently dislocated. The trial components were removed. The final size 10 collared 125 press-fit femoral stem was inserted parallel to the posterior cortex. This was fully seated and there was good rotational stability. A 36 mm 1.5 ceramic femoral head was placed. This was gently impacted. The hip was then gently reduced. Final fluoroscopic view showed adequate placement implant along with caodaism of leg length. Stability was checked with 80 of external rotation and 60 of extension of the right hip. The wound was irrigated with sterile lavage. The fascia was closed with running 0 Vicryl suture. There was minimal drainage therefore a deep drain was not placed. The second dose of IV TXA was given. The subcutaneous tissues were reapproximated interrupted 2-0 Vicryl sutures. The skin was reapproximated with 3-0 subcuticular strata fix suture. Skin tape and adhesive was applied. A sterile dressing was applied. The patient was then awoken from sedation and transferred to recovery room in good condition. Blood loss was estimated at 200 mL. No complications were incurred. Sponge and needle counts were correct at the end of the case. Calvin FRY assisted during the major components is case to include exposure, bone resection, implantation, and closure.
--- NOTE | 2023-01-25 09:20 | XR ---
Intraoperative/procedural fluoroscopic services were provided. Total fluoroscopy time is 36.5 seconds with a total of 5 submitted images to PACS. Please see the operative/procedural note for further det ails. DAP: 1.0478 mGym2
--- NOTE | 2023-01-25 13:25 | P.ANPRN ---
Procedure Note - Anesthesia - Nerve Block Performed Right Donnie Single Time Out Performed: Yes Date of Procedure: 01/25/23 Procedure Start Time: 06:56 Procedure Stop Time: 07:01 Location of Patient: PreOp Indication: Acute Post-Operative Pain, Requested by Surgeon Sedation Type: Sedate with meaningful contact maintained Preparation: Sterile Prep Position: Supine Needle Types: Pajunk Needle Gauge: 21 Ultrasound used to visualize needle placement: Yes Ultrasound used to observe medication spread: Yes Blood Aspirated: No Pain Paresthesia on Injection Noted: No Resistance on Injection: Normal Image Stored and Saved: Yes Events: Uneventful and Well Tolerated (Ropivacaine 0.5% 20 mL plus dexamethasone 4 mg)
[2023-01-25] MEDS: LACTATED RINGERS 1,000 ML IV SCH ×2 (13:57→23:56)
--- NOTE | 2023-01-25 14:28 | P.CONS ---
History of Present Illness - Reason for Consult Postoperative complication management - History of Present Illness Patient is admitted for right total hip arthroplasty. Pain is well-controlled doesn't have much of medical problems does take levothyroxine for hypothyroidism. REVIEW OF SYSTEMS: CONSTITUTIONAL: No fever, no malaise, no fatigue. HEENT: No recent visual problems or hearing problems. Denied any sore throat. CARDIOVASCULAR: No chest pain, orthopnea, PND, no palpitations, no syncope. PULMONARY: No shortness of breath, no cough, no hemoptysis. GASTROINTESTINAL: No diarrhea, no nausea, no vomiting, no abdominal pain. NEUROLOGICAL: No headaches, no weakness, no numbness. HEMATOLOGICAL: Denies any bleeding or petechiae. GENITOURINARY: Denies any burning micturition, frequency, or urgency. MUSCULOSKELETAL/RHEUMATOLOGICAL: Denies any joint pain, swelling, or any muscle pain. ENDOCRINE: Denies any polyuria or polydipsia. The rest of the 14-point review of systems is negative. PHYSICAL EXAMINATION: GENERAL: The patient is alert and oriented x3, not in any acute distress. Well developed, well nourished. HEENT: Pupils are round and equally reacting to light. EOMI. No scleral icterus. No conjunctival pallor. Normocephalic, atraumatic. No pharyngeal erythema. No thyromegaly. CARDIOVASCULAR: S1 and S2 present. No murmurs, rubs, or gallops. PULMONARY: Chest is clear to auscultation, no wheezing or crackles. ABDOMEN: Soft, nontender, nondistended, normoactive bowel sounds. No palpable organomegaly. MUSCULOSKELETAL: Deferred to orthopedic surgery EXTREMITIES: No cyanosis, clubbing, or pedal edema. NEUROLOGICAL: Gross neurological examination did not reveal any focal deficits. SKIN: No rashes. Assessment and plan -Hyperthyroidism patient will be resumed on her high-dose of levothyroxine. -Right hip arthroplasty: Postoperative management as per primary service DVT prophylaxis: On Xarelto Past Medical History Past Medical History: Osteoarthritis (OA), Thyroid Disorder Additional Past Medical History / Comment(s): Cyst on kidney, nodules on lungs, Diverticulosis, gallstones, insomnia. Rheumatoid arthritis History of Any Multi-Drug Resistant Organisms: None Reported Past Surgical History: Orthopedic Surgery, Tubal Ligation Additional Past Surgical History / Comment(s): BILATERAL CARPAL TUNNEL, BILATERAL KNEE ARTHROSCOPY, COLONOSCOPY, TOTAL RIGHT KNEE REPLACEMENT. Past Anesthesia/Blood Transfusion Reactions: No Reported Reaction Smoking Status: Never smoker - Past Family History Mother Family Medical History: Cancer Additional Family Medical History / Comment(s): BREAST CANCER. Medications and Allergies Home Medications Medication Instructions Recorded Confirmed Type Ibuprofen/Diphenhydramine Cit 1 tab PO HS PRN 11/28/14 01/18/23 History [Motrin Pm Caplet] Multivitamins, Thera [Theragran] 1 tab PO DAILY 11/28/14 01/18/23 History Ady/D3/Mag11/Zinc/Dental Technician Apprentice/Barry/Bor 1 tab PO DAILY 04/07/17 01/18/23 History [Caltrate 600+D Plus Tablet] [place]-3 Fatty Acids/Fish Oil [Fish 1 cap PO DAILY 04/07/17 01/18/23 History Oil 1,000 mg Softgel] Levothyroxine Sodium [Levoxyl] 112 mcg PO MOTUWETHFRSA 07/20/22 01/18/23 History Levothyroxine Sodium [Levoxyl] 224 mcg PO HECTOR 07/20/22 01/18/23 History HYDROcodone/APAP 7.5-325MG [[place] 1 each PO Q6HR PRN #28 tab 07/28/22 01/18/23 Rx 7.5] Vitamin B-12 (Unknown Dose) 1 tab PO DAILY 01/18/23 01/18/23 History Vitamin C (Unknown Dose) 1 tab PO DAILY 01/18/23 01/18/23 History Allergies Allergy/AdvReac Type Severity Reaction Status Date / Time acetaminophen AdvReac Nausea Verified 01/25/23 05:55 [From Tylenol-Codeine #3] codeine phosphate AdvReac Nausea Verified 01/25/23 05:55 [From Tylenol-Codeine #3] Physical Exam Vitals: Vital Signs Temp Pulse Resp BP Pulse Ox 01/25/23 12:10 79 16 98/64 96 01/25/23 11:40 88 16 98/63 97 01/25/23 11:10 60 16 98/50 98 01/25/23 10:42 61 16 97/59 98 01/25/23 10:27 64 16 98/62 99 01/25/23 10:12 67 16 90/56 100 01/25/23 09:57 64 16 93/57 98 01/25/23 09:42 61 16 94/58 99 01/25/23 09:27 77 16 93/57 99 01/25/23 09:12 96.9 F L 77 16 94/50 99 01/25/23 07:02 77 16 99/63 96 01/25/23 06:06 97.6 F 74 16 102/63 94 L Intake and Output 01/24/23 01/25/23 01/25/23 22:59 06:59 14:59 Intake Total 300 1801 Output Total 200 Balance 300 1601 Intake: IV 300 1801 Output: Estimated Blood Loss 200 Other: Weight 69.8 kg 69.8 kg
[2023-01-25] MEDS: LEVOTHYROXINE 112 MCG TAB PO SCH (14:44)
[2023-01-25] MEDS: HYDROcodone/APAP 5-325MG 1 EACH TAB PO PRN ×2 (16:03→21:46)
[2023-01-25] MEDS ORDERED: SENNOSIDES-DOCUSATE SODIUM 1 EACH TAB PO SCH (21:00)
[2023-01-26 01:35] VITALS: TEMP 98.1
[2023-01-26] MEDS: LEVOTHYROXINE 112 MCG TAB PO SCH (05:43)
[2023-01-26] MEDS: HYDROcodone/APAP 7.5-325MG 1 EACH TAB PO PRN ×2 (05:43→10:52)
[2023-01-26 08:59] VITALS: BP 97/60; PULSE 83; RESP 19
[2023-01-26] MEDS ORDERED: RIVAROXABAN 10 MG TAB PO SCH (09:00)
--- NOTE | 2023-01-26 11:40 | P.DS ---
Providers Date of admission: 01/25/2023 Expected date of discharge: 01/26/23 Attending physician: Yannick Alves Consults: 01/25/23 09:08 Consult Physician Routine Consulting Provider: Charles Valencia Consult Reason/Comments: Medical Management s/p right total hip replacement Do you want consulting provider notified?: Yes Primary care physician: Lia [facility] Course: Date of admission: 01/25/2023 Date of discharge: 01/26/2023 Admission diagnosis: Right hip osteoarthritis Discharge diagnosis: Same Attending physician: Dr. Alves Surgical procedures: Right total hip arthroplasty Brief history: Patient is a 62-year-old female with a history of progressive primary right hip osteoarthritis. At this point patient has failed conservative treatment measures and has opted to proceed with a elective right total hip arthroplasty. Hospital course: Details of patient's surgery can be found in operative report. Patient tolerated the procedure well and was subsequently transported to orthopedic floor. Patient's orthopeidc and medical care was provided daily. Patient had daily laboratory tests performed for evaluation of overall blood counts. Patient had daily physical therapy to include strengthening range of motion as well as education with walker ambulation. Patient was treated with Xarelto for their postoperative DVT prophylaxis during their inpatient stay. Patient was noted to have a relatively uneventful postoperative course. Patient reported satisfactory pain control with oral pain medications by postoperative day 1. Patient showed satisfactory progress with physical therapy. Patient moved steadily through the program and had no difficulty meeting the goals by postoperative day 1. Given patient's otherwise satisfactory course and having met physical therapy goals, plan is to discharge patient home with health services on postoperative day 1. Discharge condition/disposition: Patient will be discharged home with health services in stable condition. Discharge medications: Instructions are given on resumption of patient's normal daily medications per primary care recommendation, in addition patient will be prescribed Cardwell; senna. Discharge instructions: 1. Wound care and infection precautions, keep incision dry and covered while showering, no lotions, creams, moisturizers. No soaking, tubs, pools, hottubs. Do not scrub over the incision. 2. Weight-bear as tolerated with walker / cane until follow-up. 3. Ice and elevate when necessary. Do not exceed 20 minutes per hour with ice pack. 4. Utilize compression sleeve until seen at first follow up appointment. 5. Visiting nursing care. 6. Home physical therapy. 7. Pain meds and anticoagulants per prescription. 8. Pain medication has potential to cause constipation. Increase oral fluid and fiber intake. Contact primary care provider if you have not had a bowel movement within 48 hours after discharge 9. No anti-inflammatory medication until discussed at first post operative visit, this including Motrin, Aleve, Mobic, Diclofenac. 10. Follow up in office at 2 weeks postop with Sameer Humphrey PA-C / Calvin Franco PA-C 11. Follow up with your primary care doctor 7-10 days after discharge. 12. Contact [facility] with any questions, . Keep incision clean, dry, intact. While showering, cover fusion tape was Saran wrap. Keep tape on until follow-up appointment in office in 2 weeks. Assessment: Right hip osteoarthritis Procedures: Right total hip arthroplasty Patient Condition at Discharge: Good Plan - Discharge Summary Discharge Rx Participant: Yes New Discharge Prescriptions: New HYDROcodone/APAP 7.5-325MG [Cardwell 7.5] 1 - 2 each PO Q6HR PRN #36 tab PRN Reason: Pain Sennosides/Docusate Sodium [Senna Plus 8.6-50 mg Softgel] 1 each PO DAILY #20 capsule No Action Ibuprofen/Diphenhydramine Cit [Motrin Pm Caplet] 1 tab PO HS PRN PRN Reason: Pain Multivitamins, Thera [Theragran] 1 tab PO DAILY Ady/D3/Mag11/Zinc/Carbonating Stone Cleaner/Barry/Bor [Caltrate 600+D Plus Tablet] 1 tab PO DAILY [place]-3 Fatty Acids/Fish Oil [Fish Oil 1,000 mg Softgel] 1 cap PO DAILY Levothyroxine Sodium [Levoxyl] 112 mcg PO MOTUWETHFRSA Levothyroxine Sodium [Levoxyl] 224 mcg PO HECTOR HYDROcodone/APAP 7.5-325MG [Cardwell 7.5] 1 each PO Q6HR PRN #28 tab PRN Reason: Pain Vitamin B-12 (Unknown Dose) 1 tab PO DAILY Vitamin C (Unknown Dose) 1 tab PO DAILY Discharge Medication List Ibuprofen/Diphenhydramine Cit [Motrin Pm Caplet] 1 tab PO HS PRN 11/28/14 [History] Multivitamins, Thera [Theragran] 1 tab PO DAILY 11/28/14 [History] Ady/D3/Mag11/Zinc/Carbonating Stone Cleaner/Barry/Bor [Caltrate 600+D Plus Tablet] 1 tab PO DAILY 04/07/17 [History] [place]-3 Fatty Acids/Fish Oil [Fish Oil 1,000 mg Softgel] 1 cap PO DAILY 04/07/17 [History] Levothyroxine Sodium [Levoxyl] 112 mcg PO MOTUWETHFRSA 07/20/22 [History] Levothyroxine Sodium [Levoxyl] 224 mcg PO HECTOR 07/20/22 [History] HYDROcodone/APAP 7.5-325MG [Cardwell 7.5] 1 each PO Q6HR PRN #28 tab 07/28/22 [Rx] Vitamin B-12 (Unknown Dose) 1 tab PO DAILY 01/18/23 [History] Vitamin C (Unknown Dose) 1 tab PO DAILY 01/18/23 [History] HYDROcodone/APAP 7.5-325MG [Cardwell 7.5] 1 - 2 each PO Q6HR PRN #36 tab 01/26/23 [Rx] Sennosides/Docusate Sodium [Senna Plus 8.6-50 mg Softgel] 1 each PO DAILY #20 capsule 01/26/23 [Rx] Follow up Appointment(s)/Referral(s): Calvin Franco, DESTIN [PHYSICIAN CARD CLEANER] - 02/11/23 2:30 pm [facility], [NON-STAFF] - As Needed Patient Instructions/Handouts: Anterior Hip Replacement (DC) Activity/Diet/Wound Care/Special Instructions: Orthopedic Discharge Instructions: 1. Wound care and infection precautions, keep incision dry and covered while showering, no lotions, creams, moisturizers. No soaking, pools, hot tubs. Do not scrub over incision. 2. Weight-bear as tolerated with walker / cane until follow-up. 3. Ice and elevate when necessary. Do not exceed 20 minutes per hour with ice pack. 4. Utilize compression sleeve until seen at first follow up appointment. 5. Pain meds and anticoagulants per prescription. 6. Pain medication has potential to cause constipation. Increase oral fluid and fiber intake. Contact primary care provider if you have not had a bowel movement within 48 hours after discharge. 7. No anti-inflammatory medication until discussed at first post operative visit, this including Motrin, Aleve, Mobic, Diclofenac. 8. Follow up in office at 2 weeks postop with Sameer Humphrey PA-C / Calvin Franco PA-C 9. Follow up with your primary care doctor 7-10 days after discharge. 10. Contact [facility] with any questions, . Keep incision dry, intact. While showering, cover fusion tape with Saran wrap. Follow up in office in 2 weeks. Patient does have eliquis left at home from previous surgery. Take eliquis 2.5 mg BID x 2 weeks. Discharge Disposition: HOME WITH HOME HEALTH SERVICES
[2023-01-26] MEDS: LACTATED RINGERS 1,000 ML IV SCH (11:48)
--- NOTE | 2023-01-26 12:09 | P.PN ---
Subjective Progress Note Date: 01/26/23 - Reason for Consult Postoperative complication management - History of Present Illness Patient is admitted for right total hip arthroplasty. Pain is well-controlled doesn't have much of medical problems does take levothyroxine for hypothyroidism. 01/26/2023 Patient seen and evaluated in follow-up this morning no acute overnight issues noted. Patient is status post right total hip arthroplasty and reports to doing well. Patient reports she sees a nurse practitioner Sidra in the outpatient setting and did go there for presurgical clearance. Patient does have incentive spirometer at the bedside and encouraged to continue using at least 10 times every hour while awake. Patient also encouraged to continue with follow-up appointment with orthopedics and has been maintained on Xarelto that was started by orthopedics. Patient will likely be going home on DVT prophylaxis in the form of Xarelto. Patient is currently afebrile denies chest pain or shortness of breath. Patient tolerating diet and reports passing gas with no bowel movement as of yet. Patient is medically stable for discharge today. Review of systems: Constitutional: No reports of fatigue, fever, or chills Cardiovascular: No reports of chest pain or palpitations Respiratory: No reports of shortness of breath or cough GI: No reports of nausea, vomiting, or diarrhea : No reports of dysuria or retention Neurovascular: No reports of weakness or numbness All medications have been reviewed PHYSICAL EXAMINATION: GENERAL: The patient is alert and oriented x3, not in any acute distress. Well developed, well nourished. HEENT: Pupils are round and equally reacting to light. EOMI. No scleral icterus. No conjunctival pallor. Normocephalic, atraumatic. No pharyngeal erythema. No thyromegaly. CARDIOVASCULAR: S1 and S2 present. No murmurs, rubs, or gallops. PULMONARY: Chest is clear to auscultation, no wheezing or crackles. ABDOMEN: Soft, nontender, nondistended, normoactive bowel sounds. No palpable organomegaly. MUSCULOSKELETAL: Deferred to orthopedic surgery EXTREMITIES: No cyanosis, clubbing, or pedal edema. NEUROLOGICAL: Gross neurological examination did not reveal any focal deficits. SKIN: No rashes. Assessment: -Hypothyroidism patient will be resumed on her high-dose of levothyroxine. -Right hip arthroplasty: Postoperative management as per primary service -GI prophylaxis -DVT prophylaxis: On Xarelto -Full code Plan: Patient has been seen and evaluated by physical therapy doing relatively well will be going home and has family help Patient does have a walker at home and encouraged patient to continue using and sit up on the side of the bed for a bit prior to standing and monitor for any lightheadedness or dizziness Patient with incentive spirometer at the bedside encouraged to continue using even at home at least 10 times every hour while awake Patient has been started on Xarelto per orthopedics and will continue outpatient for DVT prophylaxis Patient encouraged to follow-up with primary care provider and keep outpatient follow-up appointment with orthopedics Patient is medically stable for discharge today. Thank you kindly for this consultation and we will continue to follow during hospitalization The impression and plan of care has been dictated by Gi Shabazz, Nurse Practitioner as directed. MD Kalli I have performed a history and examination and MDM of this patient, discussed the same with the dictator, and agree with the dictator's assessment and plan as written ,documented as a scribe. Based on total visit time, I have performed more than 50% of the visit. Objective - Vital Signs Vital signs: Vital Signs Temp 98.1 F 01/26/23 07:56 Pulse 83 01/26/23 07:56 Resp 19 01/26/23 07:56 BP 97/60 01/26/23 07:56 Pulse Ox 95 01/26/23 07:56 FiO2 Intake & Output 01/25/23 01/26/23 01/26/23 18:59 06:59 18:59 Intake Total 1801 Output Total 200 Balance 1601 Weight 69.8 kg Intake: IV 1801 Output: Estimated Blood Loss 200 Other: # Voids 2 3 1
--- NOTE | 2023-01-26 12:50 | P.PN ---
Subjective Progress Note Date: 01/26/23 Principal diagnosis: Right hip osteoarthritis Patient was seen at bedside this morning sitting up in chair icing right hip. Dressing was in place over the right hip anteriorly. Patient says she did work well with physical therapy this morning and walked down the diez and up-and-down stairs. Patient says she is ligament for be going home later today. Patient says she does have a walker for home. Patient says she has urinated since surgeries times. Patient says she has not had bowel movement yet, however, patient says she has been passing gas. Patient denies chest pain, fever, shortness of breath, nausea, vomiting, change in vision, loss of bowel/control. Objective - Vital Signs Vital signs: Vital Signs Temp 98.1 F 01/26/23 07:56 Pulse 83 01/26/23 07:56 Resp 19 01/26/23 07:56 BP 97/60 01/26/23 07:56 Pulse Ox 95 01/26/23 07:56 FiO2 Intake & Output 01/25/23 01/26/23 01/26/23 18:59 06:59 18:59 Intake Total 1801 Output Total 200 Balance 1601 Weight 69.8 kg Intake: IV 1801 Output: Estimated Blood Loss 200 Other: # Voids 2 3 1 - Exam Right knee: Incision is clean, dry, and intact. The exofin fusion tape is in good condition. There is minimal soft tissue swelling and ecchymosis surrounding the medial and lateral aspects of the incision. Calf is soft, no tenderness with palpation. Plantar flexion, dorsiflexion, EHL, FHL are intact. Sensory exam to light touch throughout the extremity is intact, dorsal pedis pulses 2+. Assessment and Plan Assessment: 1. Right hip osteoarthritis - Postoperative day 1 status post right total hip arthroplasty Plan: 1. Right hip osteoarthritis - right total hip arthroplasty performed yesterday, 01/25/2023. Patient stable bedside this morning. Patient does have a walker home. Discharge home today with health services. 2. Appreciate medical management 3. Pain management - Treichlers 4. DVT prophylaxis - Xarelto in hospital. Patient has eliquis at home from previous surgery. to resume eliquis once home twice daily for 2 weeks 5. GI prophylaxis - senna 6. PT/OT - WBAT w/walker 7. Encourage incentive spirometer use 8. Discharge planning - home with health services today Time with Patient: Less than 30
[2023-01-26 14:04] LABS: Basophils # (A) 0.04 X 10*3/uL (0.00-0.10); Basophils % (A) 0.5 %; Eosinophils # (A) 0.06 X 10*3/uL (0.04-0.35); Eosinophils % (A) 0.7 %; HCT 32.3 % (37.2-46.3); HGB 9.9 g/dL (12.0-15.0); Immature Grans, Automated 0.2 %; Lymphocytes # (A) 1.96 X 10*3/uL (0.90-5.00); Lymphocytes % (A) 23.5 %; MCH 26.8 pg (27.0-32.0); MCHC 30.7 g/dL (32.0-37.0); MCV 87.5 fL (80.0-97.0); Mean Platelet Volume 9.9 fL (9.5-12.2); Monocytes # (A) 1.01 X 10*3/uL (0.20-1.00); Monocytes % (A) 12.1 %; NRBC Per 100 WBC 0 /100 WBCS (0.0-0.0); Neutrophils # (A) 5.26 X 10*3/uL (1.80-7.70); Platelet Count 264 X 10*3/uL (140-440); RBC 3.69 X 10*6/uL (4.10-5.20); RDW 13.6 % (11.5-14.5); WBC 8.35 X 10*3/uL (4.50-10.00)
[2023-01-30] MEDS ORDERED: LEVOTHYROXINE 112 MCG TAB PO SCH (06:30)
== END 2023-01-26 16:02 | disposition home health service (06) ==
LOC: OR 05:36 → 4SSUR 09:12 → OR 01-26 16:02
PROVIDERS: ATTEND Orthopaedic Surgery
DX: M16.11 Unilateral primary osteoarthritis, right hip (principal); M06.9 Rheumatoid arthritis, unspecified; E07.9 Disorder of thyroid, unspecified; G47.00 Insomnia, unspecified; F10.90 Alcohol use, unspecified, uncomplicated; F12.90 Cannabis use, unspecified, uncomplicated; Z87.448 Personal history of other diseases of urinary system; Z87.891 Personal history of nicotine dependence; Z79.1 Long term (current) use of non-steroidal anti-inflammatories (NSAID); Z79.890 Hormone replacement therapy; Z79.899 Other long term (current) drug therapy; Z88.5 Allergy status to narcotic agent; Z88.6 Allergy status to analgesic agent
CPT/HCPCS: 27130; 64447; 97162; 97166; 86900 ×2; 86901 ×2; 85025; 86850 ×2; 73501; 73502; C1776; J2250; J1100; J0690 ×2; J2405; J3010; J2370; J2704